=== PATIENT | male | born 1940 | race Caucasian/White ===

== ENCOUNTER 2016-09-16 16:56 | Emergency (ER) | payer BC ==
[2016-09-16 18:18] LABS: BASOPHILS 0.6 %; BASOPHILS ABSOLUTE 0.05 10/3/uL (0.0-0.16); EOSINOPHILS 2.8 %; EOSINOPHILS ABSOLUTE 0.24 10/3/uL (0.0-0.53); HEMATOCRIT 39.4 % (40.0-51.0); HEMOGLOBIN 13.2 g/dL (13.6-17.8); IMMATURE GRANULOCYTES 0.6 %; IMMATURE GRANULOCYTES ABSOLUTE 0.05 10/3/uL (0.0-0.11); LYMPHOCYTES 14.4 %; LYMPHOCYTES ABSOLUTE 1.24 10/3/uL (0.67-4.30); MEAN CORPUS HGB CONC 33.5 g/dL (32.0-36.0); MEAN CORPUSCULAR HEMOGLOB 29.7 pg (26.0-34.0); MEAN PLATELET VOLUME 9.7 fL (9.2-13.0); MONOCYTES 9.6 %; MONOCYTES ABSOLUTE 0.83 10/3/uL (0.21-1.20); PLATELET COUNT 229 10/3/uL (150-400); RBC DISTRIBUTION WIDTH 12.6 % (12.0-16.0); RED CELL COUNT 4.45 10/6/uL (4.7-6.1)
[2016-09-16 18:19] LABS: ER CBC TAT 0 Hrs 07 Mins; MANUAL DIFF NO %; MEAN CORPUSCULAR VOLUME 88.5 fL (80-100); WHITE BLOOD CELLS 8.6 10/3/uL (4.5-10.5)
[2016-09-16 18:26] LABS: INTERNATIONAL NORMAL RATI 1.1 UNITS (-); PARTIAL THROMBO TIME 28.2 SEC (22.5-37.2); PROTIME (NOT ORD) 13.8 SEC (12.0-14.5)
[2016-09-16 18:28] LABS: D-DIMER QUANTITATIVE 1.83 ug/mLFEU (< 0.50)
[2016-09-16 18:35] LABS: CALCIUM, SERUM 9.3 MG/DL (8.5-10.4); CHEST PAIN PROFILE TAT 0 Hrs 23 Mins; CHLORIDE, SERUM 99 MMOL/L (96-112); CO2 (CARBON DIOXIDE) 34 MMOL/L (24-34); POTASSIUM, SERUM 4.5 MMOL/L (3.5-5.3); SODIUM, SERUM 138 MMOL/L (135-148); TROPONIN I <0.02 NG/ML (<0.05)
[2016-09-16 18:36] LABS: BUN (BLOOD UREA NITROGEN) 36 MG/DL (6-23); CREATININE 1.48 MG/DL (0.70-1.30); GFR AFRICAN AMERICAN 53 ML/MIN (>=60); GFR NON AFRICAN AMERICAN 46 ML/MIN (>=60); GLUCOSE, SERUM 208 MG/DL (60-99)
[2016-11-07] MEDS ORDERED: LANTUS SC (09:21)
[2016-11-07] MEDS ORDERED: NOVOLOG SC (09:21)
[2016-11-07] MEDS ORDERED: LIPITOR10 PO (09:22)
[2016-11-07] MEDS ORDERED: COZAAR100 MG PO (09:22)
[2016-11-07] MEDS ORDERED: ASAB PO (09:24)
[2016-11-07] MEDS ORDERED: BUM1 PO (09:24)
[2016-11-07] MEDS ORDERED: NORCO1 TA2 PO (09:25)
[2017-01-19] MEDS ORDERED: NOVOPENMIX (14:27)
[2017-01-19] MEDS ORDERED: ASAB PO (14:28)
[2017-01-19] MEDS ORDERED: PERCOCET 10/3251 TAB PO (14:29)
[2017-01-19] MEDS ORDERED: ZOFRAN4 PO (14:30)
[2017-01-19] MEDS ORDERED: SYN1 PO (14:30)
[2017-01-19] MEDS ORDERED: LIPITOR40 PO (14:31)
[2017-01-19] MEDS ORDERED: L20 PO (14:31)
[2017-01-23] MEDS ORDERED: LEVOTHYROXIN25 MCG PO (14:39)
[2017-01-23] MEDS ORDERED: HALF81 PO (14:39)
[2017-01-23] MEDS ORDERED: L40 PO (14:39)
[2017-01-23] MEDS ORDERED: LIPITOR10 PO (14:39)
[2017-01-23] MEDS ORDERED: NOVOLOG SC (14:39)
[2017-01-23] MEDS ORDERED: PERCOCET 10/3251 TAB PO (14:40)
[2017-01-23] MEDS ORDERED: ZOFRAN4 PO (14:40)
[2017-01-23] MEDS ORDERED: COZAAR100 MG PO (14:40)
[2017-01-23] MEDS ORDERED: LANTUS SC (14:41)
[2017-01-23] MEDS ORDERED: KLOR-CON M2020 MEQ PO (14:41)
[2017-01-23] MEDS ORDERED: MULTIVITAMI1 PO (14:41)
== END 2016-09-16 23:36 | disposition home or self-care (01) ==
LOC: ER 16:56
PROVIDERS: Emergency Medicine
DX: I10 Essential (primary) hypertension (principal); M23.91 Unspecified internal derangement of right knee; G47.30 Sleep apnea, unspecified; E11.9 Type 2 diabetes mellitus without complications; W18.30XA Fall on same level, unspecified, initial encounter
CPT/HCPCS: 71010; 71275; 73560-RT; 80048; 82962; 83735; 83880; 84484; 85025; 85379; 85610; 85730; 93005; 93970; 96374; 99285; A9270-GY; J2930; Q9967

== ENCOUNTER 2017-01-18 13:59 | Emergency (ER) | payer OTHER, BC ==
--- NOTE | ~2017-01-18 | OP ---
Record Of Operation [facility] [address] [id number] NAME: XOCHILT SILVA SR : 44 STATUS : DEP PAT#: [id number] AGE: 76 ADM/REG DATE : 01/18/17 MR#: [id number] REPORT SERV DATE: 01/18/17 DICTATED BY: CHILO BAKER DATE: 01/18/17 REPORT STATUS : Draft TRANSCRIBED BY: MODL DATE: 01/18/17 DATE OF PROCEDURE: 01/18/2017 PROCEDURE: Closed reduction for displaced right wrist fracture. PROCEDURE IN DETAIL: Using a hematoma block, the area was anesthetized with 1% lidocaine. After good anesthetic was had, using gentle traction, the right distal radius displaced fracture was reduced. The patient was neurovascularly intact post procedure and a long arm sugar tong splint was placed by myself. The patient remained neurovascularly intact post- procedure. Post-reduction film shows good alignment in the AP view; however, the patient still has some displacement and probably a reduction of 50% of the displacement and has much better anatomical alignment. COMPLICATIONS: None. ZOFIA/CHEPE Chilo Baker DO / [id number] CC: Terrence Bauman MD
[~2017-01-18 13:59] MED LIST: ASAB PO; BUM1 PO; COZAAR100 MG PO; LANTUS SC; LIPITOR10 PO; NORCO1 TA2 PO; NOVOLOG SC
== END 2017-01-18 17:32 | disposition home or self-care (01) ==
LOC: ER 13:59
PROC: 0PSHXZZ Reposition Right Radius, External Approach (ICD-10-PCS; principal; 2017-01-18)
PROC: 2W3QXYZ Immobilization of Right Lower Leg using Other Device (ICD-10-PCS; 2017-01-18)
DX: S52.591A Other fractures of lower end of right radius, initial encounter for closed fracture (principal); S82.54XA Nondisplaced fracture of medial malleolus of right tibia, initial encounter for closed fracture; Z79.4 Long term (current) use of insulin; Z79.82 Long term (current) use of aspirin; Z79.899 Other long term (current) drug therapy
CPT/HCPCS: 70450; 73090-RT; 73100-RT; 73610-RT; 96374; 99285; J2405